=== PATIENT | female | born 1980 | race Caucasian/White ===

== ENCOUNTER 2019-05-26 18:42 | Emergency (ER) | payer OTHER, SELFPAY ==
[2019-05-26 19:43] LABS: Urine Blood 3+ (NEG); Urine Glucose NEGATIVE (NEG); Urine Protein NEGATIVE (NEG); Urine pH 7.5 (5.0-7.0)
[2019-05-26 19:47] LABS: Urine Bacteria <20 /HPF (<20); Urine Culture Reflex Order REFLEXED; Urine RBC <5 /HPF (NONE SEEN)
[2019-05-26] MEDS ORDERED: CIPROFLOXACIN HCL 500 MG TAB ONE (19:56)
--- NOTE | 2019-05-26 20:02 | RAD REPORT ---
EXAM DESCRIPTION: CT - Stone Protocol - 05/26/2019 7:55 pm CLINICAL HISTORY: Flank pain. FLANK PAIN COMPARISON: No comparisons TECHNIQUE: Axial images were obtained without oral or IV contrast. Lack of contrast limits solid org an and vascular assessment. The [id number] spans the entirety of the system partially obscuring uppermost abdomen and lung bases. Coronal reformatted images were obtained and reviewed. All CT scans are performed using dose optimization technique as appropriate and may include automated exposure control or mA/KV adjustment according to patient size. FINDINGS: The lower lung horne are clear. Imaged portions of the liver and spleen show no suspicious findings on non-contrast imaging. The panc reas and adrenal glands are normal. No pathologic lymphadenopathy in the abdomen or pelvis. No urinary tract stones or obstructive uropathy. No bowel obstruction, free air, free fluid or abscess. Normal appendix noted. No significant bony abnormality. IMPRESSION: No urinary tract stones or obstructive uropathy.
--- NOTE | 2019-05-26 20:52 | ER ---
Nurse's Notes [facility] Name: Ida Mae Age: 38 yrs Sex: Female : 1980 Arrival Date: 05/26/2019 Time: 18:47 Bed 8 Private MD: Diagnosis: Pelvic and perineal pain;Urinary tract infection, site not specified Presentation: 05/26 19:25 Presenting complaint: Patient states: Pt reports she has been recently diagnosed with ea cervical cancer 05/19/19, had biopsy 05/09/19. States she has been having vaginal bleeding, pain and mucus discharge as well as the feeling of not being able to empty her bladder completely. Transition of care: patient was not received from another setting of care. Onset of symptoms was May 26, 2019. Risk Assessment: Do you want to hurt yourself or someone else? Patient reports no desire to harm self or others. Initial Sepsis Screen: Does the patient meet any 2 criteria? No. Patient's initial sepsis screen is negative. Does the patient have a suspected source of infection? No. Patient's initial sepsis screen is negative. Care prior to arrival: None. 19:25 Method Of Arrival: Ambulatory ea 19:25 Acuity: ROVERTO 3 ea Triage Assessment: 19:29 General: Appears uncomfortable, Behavior is calm, appropriate for age. Pain: Complains ea of pain in pelvis. Musculoskeletal: Circulation, motion, and sensation intact. 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 - Social history:: Smoking status: Patient/guardian denies using tobacco. - Ebola Screening: : No symptoms or risks identified at this time. - Family history:: not pertinent. Screenin:28 Abuse screen: Denies threats or abuse. Nutritional screening: No deficits noted. ea Tuberculosis screening: No symptoms or risk factors identified. 19:50 Fall Risk None identified. aa1 Assessment: 19:50 General: Appears in no apparent distress. comfortable, Behavior is calm, cooperative, aa1 appropriate for age. Pain: Complains of pain in suprapubic area. Neuro: Level of Consciousness is awake, alert, obeys commands, Oriented to person, place, time, situation, Moves all extremities. Full function Gait is steady. Respiratory: Airway is patent Respiratory effort is even, unlabored, Respiratory pattern is regular, symmetrical. GI: No signs and/or symptoms were reported involving the gastrointestinal system. : Reports discharge, from vagina that is white, pain in suprapubic area in lower back urinary frequency, vaginal bleeding that is spotty. EENT: No signs and/or symptoms were reported regarding the EENT system. Derm: Skin is intact, is healthy with good turgor, Skin is pink, warm \T\ dry. Musculoskeletal: Circulation, motion, and sensation intact. Capillary refill < 3 seconds. 20:40 Reassessment: Patient appears in no apparent distress at this time. Patient and/or aa1 family updated on plan of care and expected duration. Pain level reassessed. Patient is alert, oriented x 3, equal unlabored respirations, skin warm/dry/pink. MD at bedside for pelvic exam. 21:02 Reassessment: Patient appears in no apparent distress at this time. Patient is alert, aa1 oriented x 3, equal unlabored respirations, skin warm/dry/pink. Discussed d/c \T\ f/u instructions with pt; denies questions or concerns at this time. Ambulatory to lobby with steady gait. Vital Signs: 19:27 BP 140 / 89; Pulse 92; Resp 18; Temp 98.3; Pulse Ox 100% ; Weight 63.05 kg; Height 5 ea ft. (152.40 cm); 21:02 BP 133 / 82; Pulse 88; Resp 16; Temp 98.1; Pulse Ox 99% on R/A; Pain 5/10; aa1 19:27 Body Mass Index 27.15 (63.05 kg, 152.40 cm) ea ED Course: 18:47 Patient arrived in ED. mr 19:22 Terry Conley MD is Attending Physician. [facility] 19:27 Triage completed. ea 19:27 Arm band placed on right wrist. Patient placed in an exam room, on a stretcher, on ea pulse oximetry. 19:28 Bernie Kathleen RN is Primary Nurse. aa1 19:50 Patient has correct armband on for positive identification. Placed in gown. Bed in low aa1 position. Call light in reach. Pulse ox on. NIBP on. Warm blanket given. 19:54 CT Stone Protocol In Process Unspecified. EDMS 20:13 Bladder scan completed. 185 ml PVR. aa1 20:44 Assist provider with pelvic exam: Set up pelvic tray. Performed by Terry Conley MD aa1 Patient tolerated well. Chaperoned by Rahda Bains. 20:51 Janet Coello MD is Referral Physician. [facility] 21:02 Patient did not have IV access during this emergency room visit. aa1 Administered Medications: 20:02 Drug: Cipro 500 mg Route: PO; aa1 21:01 Follow up: Response: No adverse reaction aa1 21:01 Drug: [place] (7.5 mg-325 mg) 1 tabs Route: PO; aa1 21:01 Follow up: Response: Medication administered at discharge. aa1 Outcome: 20:51 Discharge ordered by . [facility] 21:02 Discharged to home ambulatory, with friend. aa1 21:02 Condition: good 21:02 Discharge instructions given to patient, friend, Instructed on discharge instructions, follow up and referral plans. medication usage, Demonstrated understanding of instructions, follow-up care, medications, Prescriptions given X 3. 21:03 Patient left the ED. aa1 Signatures: Dispatcher [employer] EDMS Bernie Kathleen RN RN aa1 Terry Conley MD MD cha Rivera, Mary mr Antunez, Elena RN RN edelmira
--- NOTE | 2019-05-26 20:52 | EDPHYS ---
Physician Documentation [facility] Name: Ida Mae Age: 38 yrs Sex: Female : 1980 Arrival Date: 05/26/2019 Time: 18:47 Bed 8 Private MD: ED Physician Terry Conley HPI: 05/26 19:45 This 38 yrs old Female presents to ER via Ambulatory with complaints of Back regina Pain, Pelvic Pain, Urinary Problem. 19:45 The patient presents with pain that is acute, with no known mechanism of injury. The regina symptoms are located in the low back. Onset: The symptoms/episode began/occurred 1 day(s) ago. The pain does not radiate. Associated signs and symptoms: The patient has no apparent associated signs or symptoms. Severity of symptoms: At their worst the symptoms were mild, in the emergency department the symptoms are unchanged. 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 - Social history:: Smoking status: Patient/guardian denies using tobacco. - Ebola Screening: : No symptoms or risks identified at this time. - Family history:: not pertinent. ROS: 19:45 Constitutional: Negative for fever, chills, and weight loss, Eyes: Negative for injury, regina pain, redness, and discharge, ENT: Negative for injury, pain, and discharge, Neck: Negative for injury, pain, and swelling, Cardiovascular: Negative for chest pain, palpitations, and edema, Respiratory: Negative for shortness of breath, cough, wheezing, and pleuritic chest pain, Abdomen/GI: Negative for abdominal pain, nausea, vomiting, diarrhea, and constipation, Back: Negative for injury and pain, MS/Extremity: Negative for injury and deformity, Skin: Negative for injury, rash, and discoloration, Neuro: Negative for headache, weakness, numbness, tingling, and seizure, Psych: Negative for depression, anxiety, suicide ideation, homicidal ideation, and hallucinations, Allergy/Immunology: Negative for hives, rash, and allergies, Endocrine: Negative for neck swelling, polydipsia, polyuria, polyphagia, and marked weight changes, Hematologic/Lymphatic: Negative for swollen nodes, abnormal bleeding, and unusual bruising. 19:45 : Positive for pelvic pain, urinary frequency, hematuria, burning with urination, difficulty urinating. Exam: 19:45 Constitutional: This is a well developed, well nourished patient who is awake, alert, regina and in no acute distress. Head/Face: Normocephalic, atraumatic. Eyes: Pupils equal round and reactive to light, extra-ocular motions intact. Lids and lashes normal. Conjunctiva and sclera are non-icteric and not injected. Cornea within normal limits. Periorbital areas with no swelling, redness, or edema. ENT: Nares patent. No nasal discharge, no septal abnormalities noted. Tympanic membranes are normal and external auditory canals are clear. Oropharynx with no redness, swelling, or masses, exudates, or evidence of obstruction, uvula midline. Mucous membranes moist. Neck: Trachea midline, no thyromegaly or masses palpated, and no cervical lymphadenopathy. Supple, full range of motion without nuchal rigidity, or vertebral point tenderness. No Meningismus. Chest/axilla: Normal chest wall appearance and motion. Nontender with no deformity. No lesions are appreciated. Cardiovascular: Regular rate and rhythm with a normal S1 and S2. No gallops, murmurs, or rubs. Normal PMI, no JVD. No pulse deficits. Respiratory: Lungs have equal breath sounds bilaterally, clear to auscultation and percussion. No rales, rhonchi or wheezes noted. No increased work of breathing, no retractions or nasal flaring. Abdomen/GI: Soft, non-tender, with normal bowel sounds. No distension or tympany. No guarding or rebound. No evidence of tenderness throughout. Back: No spinal tenderness. No costovertebral tenderness. Full range of motion. Skin: Warm, dry with normal turgor. Normal color with no rashes, no lesions, and no evidence of cellulitis. MS/ Extremity: Pulses equal, no cyanosis. Neurovascular intact. Full, normal range of motion. Neuro: Awake and alert, GCS 15, oriented to person, place, time, and situation. Cranial nerves II-XII grossly intact. Motor strength 5/5 in all extremities. Sensory grossly intact. Cerebellar exam normal. Normal gait. Psych: Awake, alert, with orientation to person, place and time. Behavior, mood, and affect are within normal limits. 20:49 : Pelvic Exam: External exam: is normal, Speculum exam: mild bleeding, cervicitis regina present, os that is closed, discharge, bloody, biopsy site seen, mild bleeding. Vital Signs: 19:27 BP 140 / 89; Pulse 92; Resp 18; Temp 98.3; Pulse Ox 100% ; Weight 63.05 kg; Height 5 ea ft. (152.40 cm); 21:02 BP 133 / 82; Pulse 88; Resp 16; Temp 98.1; Pulse Ox 99% on R/A; Pain 5/10; aa1 19:27 Body Mass Index 27.15 (63.05 kg, 152.40 cm) ea MDM: 19:22 Patient medically screened. [facility] 20:50 Data reviewed: vital signs, nurses notes, lab test result(s), urinalysis, bacteruria. [facility] 05/26 18:57 Order name: Urine Culture [facility] 05/26 18:57 Order name: Urine Microscopic Only; Complete Time: 20:33 [facility] 05/26 19:39 Order name: Urine Dipstick--Ancillary (enter results); Complete Time: 20:33 [facility] 05/26 19:39 Order name: Urine --Ancillary (enter results); Complete Time: 20:33 [facility] 05/26 19:44 Order name: CT Stone Protocol; Complete Time: 20:33 [facility] 05/26 18:57 Order name: Urine Test (obtain specimen); Complete Time: 19:41 [facility] 05/26 18:57 Order name: Urine Dipstick-Ancillary (obtain specimen); Complete Time: 19:41 [facility] 05/26 19:44 Order name: Pelvic Exam Setup; Complete Time: 20:13 [facility] 05/26 19:45 Order name: Bladder Scanner: pvr please; Complete Time: 20:13 [facility] Administered Medications: 20:02 Drug: Cipro 500 mg Route: PO; aa1 21:01 Follow up: Response: No adverse reaction aa1 21:01 Drug: [place] (7.5 mg-325 mg) 1 tabs Route: PO; aa1 21:01 Follow up: Response: Medication administered at discharge. aa1 Disposition: 05/26/19 20:51 Discharged to Home. Impression: Pelvic and perineal pain, Urinary tract infection, site not specified. - Condition is Stable. - Discharge Instructions: Dysuria, Pelvic Pain, Female, Pelvic Pain, Female, [id number], Urinary Tract Infection, Adult, [id number]. - Prescriptions for Cipro 500 mg Oral Tablet - take 1 tablet by ORAL route every 12 hours for 7 days; 14 tablet. Bactrim DS 800- 160 mg Oral Tablet - take 1 tablet by ORAL route every 12 hours for 3 days; 6 tablet. Tylenol- Codeine #3 300-30 mg Oral Tablet - take 2 tablets by ORAL route every 6 hours As needed; 20 tablet. - Medication Reconciliation Form, Thank You Letter, Antibiotic Education, Prescription Opioid Use form. - Follow up: Private Physician; When: 2 - 3 days; Reason: Recheck today's complaints, Continuance of care, Re-evaluation by your physician. Follow up: Janet Coello; When: 2 - 3 days; Reason: Recheck today's complaints, Continuance of care, Re-evaluation by your physician. - Problem is new. - Symptoms have improved. Signatures: Dispatcher [employer] EDBernie Perez RN RN aa1 Terry Conley MD MD cha Therrien, Shelly, LICENSED LOAN OFFICER-C LICENSED LOAN OFFICER-Csnw Amy Horner RN RN ea Corrections: (The following items were deleted from the chart) 21:03 20:51 05/26/2019 20:51 Discharged to Home. Impression: Pelvic and perineal pain; aa1 Urinary tract infection, site not specified. Condition is Stable. Discharge Instructions: Dysuria, Pelvic Pain, Female, Pelvic Pain, Female, [id number], Urinary Tract Infection, Adult, [id number]. Prescriptions for Cipro 500 mg Oral Tablet - take 1 tablet by ORAL route every 12 hours for 7 days; 14 tablet, Bactrim DS 800-160 mg Oral Tablet - take 1 tablet by ORAL route every 12 hours for 3 days; 6 tablet. and Forms are Medication Reconciliation Form, Thank You Letter, Antibiotic Education, Prescription Opioid Use. Follow up: Private Physician; When: 2 - 3 days; Reason: Recheck today's complaints, Continuance of care, Re-evaluation by your physician. Follow up: Janet Coello; When: 2 - 3 days; Reason: Recheck today's complaints, Continuance of care, Re-evaluation by your physician. Problem is new. Symptoms have improved. regina
[2019-05-26] MEDS ORDERED: HYDROCODONE/APAP 7.5/325 MG TAB ONE (21:02)
[2019-05-26 21:49] VITALS: BP 133/82; TEMP 98.1; O2SAT 99
== END 2019-05-26 21:03 | disposition home or self-care (01) ==
LOC: ER 18:42
DX: N39.0 Urinary tract infection, site not specified (principal); R10.2 Pelvic and perineal pain
CPT/HCPCS: 74176; 76377; 81003; 81015; 81025; 87086; 87088; 99284

== ENCOUNTER 2025-01-17 07:14 | Day surgery (SDC) | payer BC ==
[2025-01-17] MEDS: Ringers Lactate 1,000 ML IV ONE (08:02)
[2025-01-17] MEDS ORDERED: LIDOCAINE 1% MPF 5 ML VIAL ONE (08:23)
[2025-01-17 09:51] VITALS: BP 124/90; TEMP 97; O2SAT 100
== END 2025-01-17 10:10 | disposition home or self-care (01) ==
LOC: OR 07:14
PROVIDERS: ATTEND Surgery
PROC: 0DJD8ZZ Inspection of Lower Intestinal Tract, Via Natural or Artificial Opening Endoscopic (ICD-10-PCS; principal; 2025-01-17 08:30)
DX: K52.9 Noninfective gastroenteritis and colitis, unspecified (principal); R11.2 Nausea with vomiting, unspecified; K64.4 Residual hemorrhoidal skin tags; K64.8 Other hemorrhoids
CPT/HCPCS: 93005; 45378; J2704; J2003; J7120